=== PATIENT | female | born 1995 | race Caucasian/White ===

== ENCOUNTER 2022-12-03 18:47 | Emergency (ER) | payer OTHER ==
[~2022-12-03] VITALS: Ht 167.6 cm; Wt 113.6 kg
[2022-12-03] MEDS ORDERED: IBUP-1022 PO (19:00)
[2022-12-03] MEDS ORDERED: ETON68IM SC (19:00)
[2022-12-03 21:57] VITALS: TEMP 99.7
[2022-12-03 22:37] LABS: BASO # 0.1 10^3/uL (0.0-0.2); BASO % 0.5 % (0.0-1.0); EOS # 0.1 10^3/uL (0.0-0.5); EOS % 1.4 % (0.0-3.0); HEMATOCRIT 39.6 % (36.0-47.0); HEMOGLOBIN 12.3 g/dl (12.0-15.5); LYMPH # 2.7 10^3/uL (1.5-5.0); LYMPH % 28.7 % (24.0-44.0); MEAN CORPUSCULAR HGB CONC 31.1 g/dl (32.0-36.5); MEAN CORPUSCULAR VOLUME 80.5 fl (80.0-96.0); MONO # 0.8 10^3/uL (0.0-0.8); NEUTROPHILS # 5.6 10^3/uL (1.5-8.5); PLATELET COUNT, AUTOMATED 312 10^3/uL (150-450); RED BLOOD COUNT 4.92 10^6/uL (4.00-5.40); WHITE BLOOD COUNT 9.3 10^3/uL (4.0-10.0)
[2022-12-03 22:58] LABS: ERYTHROCYTE SEDIMENTATION RATE 91 mm/hr (0-20)
[2022-12-03] MEDS ORDERED: cefTRIAXone SOD 1 GM in D5W MINI-BAG PLUS 50 ML IV ONE (23:05)
[2022-12-04] MEDS ORDERED: KETOROLAC 30 MG/ML 1ML VIAL IV ONE
[2022-12-04] MEDS ORDERED: LIDOCAINE W/EPINEPHRINE 1% 20ML VIAL SC ONE (00:45)
[2022-12-04] MEDS ORDERED: HYDR-3713 PO (01:27)
[2022-12-04] MEDS ORDERED: AMOX875T2 PO (01:27)
[2022-12-04 01:38] VITALS: BP 134/85; O2SAT 98
== END 2022-12-04 01:40 | disposition home or self-care (01) ==
LOC: M ED 18:47
DX: L02.31 Cutaneous abscess of buttock (principal)
CPT/HCPCS: 10060; 76857; 80047; 83605; 85025; 85652; 86140; 87070; 87077; 87186; 96374; 96375; 99284; J0696; J1885